=== PATIENT | female | born 1960 ===

== ENCOUNTER 2019-03-15 17:45 | Outpatient (CLI) | payer MEDICARE, MEDICAID ==
[2019-03-15 18:06] LABS: Potassium 4.8 mmol/L (3.5-5.1); Sodium 142 mmol/L (136-145)
[2019-03-15 18:07] LABS: Albumin 4.1 g/dL (3.5-5.0); Anion Gap 14 mmol/L (10-20); BUN (Urea Nitrogen) 15 mg/dL (9.8-20.1); Bilirubin, Total 0.2 mg/dL (0.2-1.2); Calc. Creatinine Clearance 0 mL/min (70-130); Calcium 10.1 mg/dL (7.8-10.44); Carbon Dioxide 27 mmol/L (22-29); Chloride 106 mmol/L (98-107); Estimated GFR-MDRD 69; Globulin 2.7 g/dL (2.4-3.5); Glucose 150 mg/dL (70-105); Protein, Total 6.8 g/dL (6.0-8.3)
[2019-03-15 18:08] LABS: ALT (SGPT) 19 U/L (8-55); AST (SGOT) 11 U/L (5-34); Alkaline Phosphatase 81 U/L (40-150)
[2019-03-15 18:09] LABS: Hemoglobin 13.2 g/dL (12.0-16.0); Mean Corpuscular HGB CONC 31.7 g/dL (32.0-36.0); Mean Corpuscular Hemoglobin 29.6 pg (27.0-31.0); Mean Corpuscular Volume 93.4 fL (78.0-98.0); Red Blood Cell (RBC) Count 4.47 mill/uL (4.20-5.40); White Blood Cell (WBC) Count 10.2 thou/uL (4.8-10.8)
[2019-03-15 18:10] LABS: #Lymphocytes 2.5 thou/uL (1.20-3.40); #Monocytes 0.6 thou/uL (0.11-0.59); #Neutrophils 6.7 thou/uL (1.40-6.50); %Basophils 0.7 % (0.0-1.0); %Eosinophils 3.7 % (0.0-10.0); %Lymphocytes 24.3 % (21.0-51.0); %Monocytes 6.2 % (0.0-10.0); %Neutrophils 65.2 % (42.0-75.0); Manual Diff?? NO; Mean Platelet Volume 7.7 fL (7.4-10.4); Platelet Count 220 thou/uL (130-400); RBC Distribution Width 14.1 % (11.5-14.5)
[2019-03-15 18:11] LABS: #Basophils 0.1 thou/uL (0.0-0.2); #Eosinphils 0.4 thou/uL (0.0-0.7)
[2019-03-15 21:32] LABS: Hemoglobin A1c 6.1 % (4.0-6.0)
[2019-03-15 22:18] LABS: Follow-up Chemistry Comp? YES; Follow-up Result - Chemistry REPORT FAXED
== END 2019-03-15 17:46 | disposition home or self-care (01) ==
LOC: MADLAB 17:45
DX: E11.9 Type 2 diabetes mellitus without complications (principal); I10 Essential (primary) hypertension
CPT/HCPCS: 80053; 82306; 83036; 85025